=== PATIENT | female | born 1965 | race Caucasian/White ===

== ENCOUNTER 2016-12-09 10:00 | Day surgery (SDC) | payer OTHER ==
[~2016-12-09] VITALS: Ht 185.4 cm; Wt 96.1 kg
[2016-12-09] MEDS ORDERED: SODIUM CHLORIDE 0.9% 1,000 ML IV SCH (10:46)
[2016-12-09] MEDS ORDERED: ALPR0.25 PO (10:46)
[2016-12-09 10:47] VITALS: BP 143/99
[2016-12-09] MEDS ORDERED: MIDAZOLAM 1 MG/ML, 5ML ONE (12:53)
[2016-12-09] MEDS ORDERED: FENTANYL PF 100 MCG/2ML ONE (12:53)
== END 2016-12-09 14:35 ==
LOC: RAD 10:00
PROVIDERS: ATTEND Internal Medicine
DX: K75.4 Autoimmune hepatitis (principal); K73.9 Chronic hepatitis, unspecified; Z87.891 Personal history of nicotine dependence
CPT/HCPCS: 36415; 47000; 76942; 85610; 88307; 88313; 99156; 99157; J2250; J3010; J7030

== ENCOUNTER → 2017-11-02 | Outpatient (CLI) | payer OTHER ==
[~2017-11-02] MED LIST: ALPR0.25 PO
== END | disposition home or self-care (01) ==
LOC: CFH 16:02
PROVIDERS: ATTEND Specialist
DX: Z12.31 Encounter for screening mammogram for malignant neoplasm of breast (principal)
CPT/HCPCS: 77063; 77067